=== PATIENT | male | born 1970 | race Caucasian/White ===

== ENCOUNTER 2020-12-11 14:28 | Emergency (ER) | payer BC ==
[~2020-12-11] VITALS: Ht 190.5 cm; Wt 98.0 kg
[2020-12-11] MEDS ORDERED: LIDOcaine 1% W/epiNEPHrine 1:200,000 10ml vial IJ ONE (15:00)
[2020-12-11] MEDS ORDERED: HYDROcodone/acetaminophen 5mg/325mg tablet PO ONE (17:30)
[2020-12-11] MEDS ORDERED: CEPH250T PO (18:12)
[2020-12-11] MEDS ORDERED: HYDR-3965 PO (18:15)
[2020-12-11] MEDS ORDERED: tetanus & diphtheria toxoid (Td) vaccine 0.5ml IMVAC ONE (18:25)
[2020-12-11 18:29] VITALS: BP 112/80
[2020-12-11] MEDS ORDERED: TETanus/Pertussis (Acell)/Diphther VAC/PF (Tdap-Adult) 0.5ml syringe IMVAC ONE (18:30)
== END 2020-12-11 18:55 | disposition home or self-care (01) ==
LOC: ER 14:28
DX: S63.257A Unspecified dislocation of left little finger, initial encounter (principal); X58.XXXA Exposure to other specified factors, initial encounter; Y93.89 Activity, other specified; Y92.89 Other specified places as the place of occurrence of the external cause; Y99.8 Other external cause status
CPT/HCPCS: 12001; 73140; 90471; 90715; 99283